=== PATIENT | female | born 1975 | race Caucasian/White ===

== ENCOUNTER 2019-01-09 10:39 | Day surgery (SDC) | payer OTHER ==
[~2019-01-09] VITALS: Ht 170.2 cm; Wt 123.9 kg
[~2019-01-09 10:39] MED LIST: ALBU90OI; ALBU90OI INH; ALPR.5 PO; BENZ100A PO; CELE200 PO; ERGO50000 PO; GUAI600T33 PO; HYDACE5325 PO; IBUP600 PO; IBUP800 PO; Keflex500 MG PO; MULVITMINE PO; OMEP40CA12 PO; ONDA8ODT MM; OXYACE5T PO; RXSULTRIDS; TAMS.4ER PO
== END 2019-01-09 13:42 | disposition home or self-care (01) ==
LOC: ORSCSDS 10:39
PROVIDERS: Otolaryngology
PROC: 0NSBXZZ Reposition Nasal Bone, External Approach (ICD-10-PCS; principal; 2019-01-09 12:00)
DX: S02.2XXA Fracture of nasal bones, initial encounter for closed fracture (principal); E66.01 Morbid (severe) obesity due to excess calories; Z68.43 Body mass index [BMI] 50.0-59.9, adult; J45.909 Unspecified asthma, uncomplicated; F17.210 Nicotine dependence, cigarettes, uncomplicated; Z79.899 Other long term (current) drug therapy
CPT/HCPCS: J1100; J2250; J2405; J2704; J3010; J7120